=== PATIENT | male | born 1960 | race Hispanic/Latino ===

== ENCOUNTER 2016-11-29 08:01 | Inpatient (IN) | payer MEDICARE, OTHER ==
[2016-11-29] MEDS ORDERED: Sodium Chloride 0.9% 1,000 ML IV STA (08:18)
--- NOTE | 2016-11-29 08:24 | ED PDOC ---
HPI: General Adult Time Seen by Provider: 11/29/16 08:05 Chief Complaint (Nursing): GI Problem Chief Complaint (Provider): rectal bleeding History Per: Patient History/Exam Limitations: no limitations Onset/Duration Of Symptoms: Days (x 1) Have you had recent travel within the past 21 days to any of the following countries: [place], [place], [place] or [place]?: No Additional Complaint(s): Reji Bermudez is a 56 year old male, with a previous medical history of COPD, diabetes and depression, who presents to the ED for the evaluation of rectal bleeding which started last night. Patient states a moderate amount of dark red blood yesterday which he notes has decreased this morning. He denies any nausea , vomiting, fever or abdominal pain. PMD: Hussein Tsang MD Past Medical History Reviewed: Historical Data, Nursing Documentation, Vital Signs Vital Signs: Last Vital Signs Temp 97 F L 11/29/16 08:05 Pulse 100 H 11/29/16 08:05 Resp 18 11/29/16 08:05 BP 117/77 11/29/16 08:05 Pulse Ox 97 11/29/16 08:30 - Medical History PMH: Anxiety, Arthritis, Asthma, COPD, Depression, Diabetes, Gastrointestinal Ulcer, HTN, Hypercholesterolemia, Hyperlipidemia, Osteoporosis, Schizophrenia Denies: HIV, Chronic Kidney Disease - Surgical History Surgical History: Cholecystectomy - Family History Family History: States: Unknown Family Hx - Home Medications Home Medications: Ambulatory Orders Medication Instructions Recorded Alendronate [Fosamax] 70 mg PO QWK 11/29/16 Aspirin [Aspirin Chewable] 81 mg PO DAILY 11/29/16 Atorvastatin [Lipitor] 40 mg PO HS 11/29/16 Budesonide/Formoterol Fumarate 2 inh INH BID 11/29/16 [Symbicort 160-4.5 Mcg Inhaler] Calcium Carbonate/Vitamin D3 1 tab PO BID 11/29/16 [Oyster Shell Calcium Tablet] Clotrimazole 1% [Lotrimin AF 1%] 1 apful NA DAILY 11/29/16 Divalproex Sodium [Divalproex 2 tab PO HS 11/29/16 Sodium ER] Duloxetine HCl [Duloxetine] 60 mg PO DAILY 11/29/16 Econazole Nitrate [Ecoza] 1 apful TP BID 11/29/16 Gabapentin [Neurontin] 2 cap PO DAILY 11/29/16 Metformin HCl [Glucophage] 500 mg PO BID 11/29/16 Multivit-Min/FA/Lycopen/Lutein 1 cap PO DAILY 11/29/16 [Centrum Silver Tablet] Omeprazole 40 mg PO DAILY 11/29/16 Patient Own Control [Patient Own 1 appful TOP BID 11/29/16 Control] Tiotropium [Spiriva] 1 inh INH DAILY 11/29/16 Tolterodine [Detrol] 4 mg PO DAILY 11/29/16 - Allergies Allergies/Adverse Reactions: Allergies Allergy/AdvReac Type Severity Reaction Status Date / Time No Known Allergies Allergy Verified 08/25/15 08:44 Review of Systems ROS Statement: Except As Marked, All Systems Reviewed And Found Negative Constitutional: Negative for: Fever, Chills Gastrointestinal: Positive for: Other (rectal bleeding ). Negative for: Nausea , Vomiting, Abdominal Pain Physical Exam - Reviewed Nursing Documentation Reviewed: Yes Vital Signs Reviewed: Yes - Physical Exam Appears: Positive for: Well, Non-toxic, No Acute Distress Cardiovascular/Chest: Positive for: Regular Rate, Rhythm Respiratory: Positive for: CNT, Normal Breath Sounds Gastrointestinal/Abdominal: Positive for: Bowel Sounds, Soft, Other ( questionable ascities with fluid wave ). Negative for: Tenderness Rectal: Positive for: Other (bright red blood on glove ) Extremity: Positive for: Other (left foot fracture placed in surgical boot ) Neurologic/Psych: Positive for: Alert, Oriented - Laboratory Results Result Diagrams: 11/29/16 08:49 11/29/16 08:49 - ECG O2 Sat by Pulse Oximetry: 97 (RA) Pulse Ox Interpretation: Normal Medical Decision Making Medical Decision Making: Initial Impression: Rectal bleeding Initial Plan: * blood type and screen * CT abd & pelvis IV contrast * EKG * labs * urine dipstick * prothrombin time * IV NS 1,000 ml at 100 ml/hr * protonix * reevaluation Scribe Attestation: Documented by Mervat Chacon, acting as a scribe for Ozzy Mart MD. Provider Scribe Attestation: All medical record entries made by the Scribe were at my direction and personally dictated by me. I have reviewed the chart and agree that the record accurately reflects my personal performance of the history, physical exam, medical decision making, and the department course for this patient. I have also personally directed, reviewed, and agree with the discharge instructions and disposition. Disposition - Clinical Impression Clinical Impression: Diverticulosis, GI bleed - Patient ED Disposition Is Patient to be Admitted: Yes - Disposition Disposition Time: 12:00 Condition: FAIR - Pt Status Changed To: Hospital Disposition Of: Observation - POA Present On Arrival: None
[2016-11-29] MEDS ORDERED: Iohexol 300 100 ML IJ ONE (08:30)
[2016-11-29] MEDS ORDERED: Sodium Chloride 0.9% 50 ML IV ONE (08:31)
[2016-11-29 08:57] LABS: BASO % 0.2 % (0.0-2.0); EOS # 0.1 K/uL (0.0-0.7); EOS % 0.6 % (0.0-4.0); HEMATOCRIT 33.9 % (35.0-51.0); LYMPH # 2.9 K/uL (1.0-4.3); LYMPH % 28.6 % (20.0-40.0); MEAN CELL VOLUME 90.9 fl (80.0-94.0); MEAN CORPUSCULAR HEMOGLOBIN 30.5 pg (27.0-31.0); MEAN CORPUSCULAR HGB CONC 33.6 g/dL (33.0-37.0); MEAN PLATELET VOLUME 9.1 fl (7.2-11.7); MONO # 0.7 K/uL (0.0-0.8); MONO % 7.3 % (0.0-10.0); NEUT # 6.4 K/uL (1.8-7.0); NEUT % 63.3 % (50.0-75.0); WHITE BLOOD COUNT 10.2 K/uL (4.8-10.8)
[2016-11-29 09:07] LABS: ALB/GLOB RATIO 1.4 (1.0-2.1); ALKALINE PHOSPHATASE 64 U/L (38-126); ALT/SGPT 32 U/L (21-72); AST/SGOT 35 U/L (17-59); BILIRUBIN,TOTAL 0.4 mg/dl (0.2-1.3); BLOOD UREA NITROGEN 11 mg/dl (9-20); CALCIUM 8.9 mg/dL (8.4-10.2); CARBON DIOXIDE 25 mmol/L (22-30); CHLORIDE 99 mmol/L (98-107); GFR AFRICAN-AMERICAN > 60; GLUCOSE,RANDOM 135 mg/dL (75-110); POTASSIUM 4.1 MMOL/L (3.6-5.0); SODIUM 135 mmol/l (132-148); TOTAL PROTEIN 7.3 G/DL (6.3-8.2)
--- NOTE | 2016-11-29 11:07 | CT ---
PROCEDURE: CT Abdomen and pelvis dated 11/29/2016 HISTORY: gi bleed COMPARISON: Comparison made with prior CT scan abdomen pelvis 02/24/2016 TECHNIQUE: Contiguous axial images of the abdomen and pelvis. Oral contrast was administered. No IV contrast given. Coronal and Sagittal reformats generated. Radiation dose: Total exam DLP = 700.90 mGy-cm. This CT exam was performed using one or more of the following dose reduction techniques: Automated exposure control, adjustment of the mA and/or kV according to patient size, and/or use of iterative reconstruction technique. FINDINGS: LOWER THORAX: Fibrotic fibrosis/scarring and honeycombing changes both lung bases. There may also be chronic pleural thickening as well. Subpleural fat with what may represent the concomitant small amount of chronic pleural thickening as well. No effusion or basilar pneumothorax. Small hiatal hernia. Heart appears mildly enlarged. No pericardial effusion. LIVER: Liver appears mildly enlarged measuring just over 20 cm in CC dimension. The. Mild fatty hepatic infiltration. Portal and splenic veins are opacified. Re- demonstrated is a tiny approximately 3 mm low-attenuation focus left lateral margin left lobe liver too small characterize. GALLBLADDER AND BILE DUCTS: Re- demonstrated are changes of cholecystectomy with metallic clips in the gallbladder fossa PANCREAS: The visualized portions of the pancreas appear grossly unremarkable without mass collection or calcification. No significant pancreatic ductal dilatation. . SPLEEN: Spleen exhibits normal size and attenuation pattern without mass collection or calcification. ADRENALS: There are no adrenal lesions. . KIDNEYS AND URETERS: Kidneys demonstrate symmetric nephrograms. No evidence of nephrolithiasis or hydronephrosis. No obvious renal mass or collection. The BLADDER: The urinary bladder is physiologically distended. No evidence of intraluminal urinary bladder calculi. . REPRODUCTIVE: Prostate gland and seminal vesicles unremarkable APPENDIX: Normal-appearing appendix of best seen on coronal series 601 at image number [id number]. No periappendiceal inflammatory changes. BOWEL: Evaluation of the bowel is somewhat limited due to the lack of oral contrast material. The stomach is incompletely distended which may in part account for thick-walled appearance. Gastritis or other intrinsic/invasive wall lesion should be excluded. Consider followup EGD evaluation. Visualized loops of small bowel exhibit normal contour and caliber no do contain fluid. . No evidence of acute mechanical small bowel obstruction. There are scattered colonic diverticula the the the however no definitive radiographic evidence of acute diverticulitis. PERITONEUM: Unremarkable. No fluid collection. No free air. There appears to be localized mild dehiscence mid abdominus rectus muscle. LYMPH NODES: Unremarkable. No significantly enlarged ed lymph nodes. VASCULATURE: Unremarkable. No aortic aneurysm. . Partially calcified atherosclerotic plaque seen along the abdominal aorta and iliac vessels. BONES: Multilevel degenerative spondylosis of the lower thoracic and lumbar spine. OTHER FINDINGS: None. IMPRESSION: Gastric wall thickening which may in part be due to underdistention however gastritis or other intrinsic/invasive wall lesion to be excluded. Consider followup EGD evaluation Mild hepatomegaly with mild fatty hepatic infiltration. Tiny low-attenuation focus left lateral margin left lobe liver too small characterize on the. Followup interval could be performed to assess stability. The the Status post cholecystectomy. Diverticulosis without radiographic evidence of acute diverticulitis. Scarring/ fibrosis and honeycombing changes of both lung bases.
--- NOTE | 2016-11-29 12:21 | CARD ---
APPROVED REPORT EKG Measurement Heart [id number] ND [id number] [id number] <Conclusion> Sinus tachycardia with occasional premature ventricular complexes Otherwise normal ECG
[2016-11-29] MEDS ORDERED: ALENDRONATE 70 MG TAB PO SCH (18:15)
[2016-11-29] MEDS ORDERED: RISPERIDONE 4 MG PO SCH (22:00)
[2016-11-29] MEDS: Divalproex 500 mg ER (ONCE DAILY formulation) PO SCH (23:51)
[2016-11-29] MEDS: Sodium Chloride 0.9% 1,000 ML IV SCH (23:56)
--- NOTE | 2016-11-30 03:30 | PCM.RRTMUL ---
<Faheme Mar - Last Filed: 11/30/16 03:53> JAVA SYSTEMS ANALYST Nurse Assessment - Situation JAVA SYSTEMS ANALYST Responder Arrival Time:: 03:07 Location:: [address] [place] [address] - Vital Signs Blood Pressure:: 97/68 Pulse Rate:: 106 Respiratory Rate:: 18 Temperature:: 97.8 F Responder Note - Time JAVA SYSTEMS ANALYST was called Time JAVA SYSTEMS ANALYST was called:: 03:06 - Location Location: [address] [place] [address] - JAVA SYSTEMS ANALYST Team JAVA SYSTEMS ANALYST Leader:: Elvis Zeng Resident:: Faheem Mar - Vital Signs at Initial Assessment Blood Pressure:: 120/73 Pulse Rate:: 91 Respiratory Rate:: 14 Temperature:: 98 F O2 Sat by Pulse Oximetry:: 98 - Chest Pain Chest Pain:(If answer is yes, complete next 2 questions): No - Seizure Seizure:: No New Onset:: No - Neurological Status Neurological Status (Select all that apply):: Alert, Responsive, Oriented, Verbal, Follows Commands - Respiratory JAVA SYSTEMS ANALYST Delivery Method:: Nasal Cannula @L/min Summary - Summary of Event Summary of Event: JAVA SYSTEMS ANALYST was called at 3: 06 am for a 56 yo,m , PMhx/o COPD, diabetes, depression, who was admitted for rectal bleeding started 2 days ago. After patient having a BM bright red small amount rectal bleeding on the toilet this morning and going back to the bed, patient was noticed almost pass out by nurse. On responder arrival, patient lying down flat,pale, awake, AAO x3, responsive, follow commands, using O2 NC. He denies chest pain, SOB, N, V, Abd pain, fall. He reports feeling hungry. Initial VS: BP: 120/73 HR: 91 Temp: 98F Sat O2: 98% PE GA: Patient lying down flat, pale, awake, AAO x3, responsive, follow commands , using O2 NC CV: RRR, + S1, S2, No M/R/G. Resp: CTA, no rhonchi, wheezing, rales Abd: + Bs, Soft, no TD. no rebound, no guarding Neuro: AAO 3, no focal motor deficit Impression Near syncope secondary to anemia due to rectal bleeding labs reviewed H/H 11.4/33.9 on admission Plan -CBC, CMP -Type screen -Cross match 2. transfuse 1 unit -Transfuse consent taken. - to f/u <Elvis Zeng - Last Filed: 11/30/16 05:48> Outcomes - JAVA SYSTEMS ANALYST Outcomes JAVA SYSTEMS ANALYST Outcomes: I saw and examined the patient shoulder to shoulder with Dr Mar. The assessment and plan outlined represent my direct input. The patient had 3 episodes of hematochezia and was light headed on returning to bed. his Hb on chart at that time was 11.4g/dl with a Ht of 33.9. He was awake and alert , referred feeling better on lying down.. The blood pressure fell to 97/68mmHg and The IV Fluids NS at 100mls/Hr was Continued. A&P: # Lower GI bleed with Presyncopal episode;- Stat CBC/Type and cross for2 units of PRBC and transfuse one unit. New Hb is 9.4g/dl with Ht of 27.5. Consent for blood transfusion was obtained from the patient after the risk and benefits were explained to the patient. One unit of PRBC to be transfused immediately. Elvis Zeng MD Hospitalist Critical care time 35minutes
[2016-11-30 03:50] LABS: BASO # 0.1 K/uL (0.0-0.2); BASO % 0.4 % (0.0-2.0); EOS # 0.1 K/uL (0.0-0.7); EOS % 0.5 % (0.0-4.0); HEMATOCRIT 27.5 % (35.0-51.0); LYMPH # 5.8 K/uL (1.0-4.3); MEAN CELL VOLUME 90.5 fl (80.0-94.0); MEAN CORPUSCULAR HEMOGLOBIN 30.8 pg (27.0-31.0); MEAN PLATELET VOLUME 9.2 fl (7.2-11.7); MONO # 1.6 K/uL (0.0-0.8); MONO % 10.6 % (0.0-10.0); NEUT # 7.7 K/uL (1.8-7.0); NEUT % 50.5 % (50.0-75.0); NRBC % 0.1 % (0.0-0.0); RED CELL DISTRIBUTION WIDTH 13.9 % (11.5-14.5); WHITE BLOOD COUNT 15.2 K/uL (4.8-10.8)
[2016-11-30 04:29] LABS: ALB/GLOB RATIO 1.3 (1.0-2.1); ALKALINE PHOSPHATASE 63 U/L (38-126); ALT/SGPT 32 U/L (21-72); AST/SGOT 39 U/L (17-59); BILIRUBIN,TOTAL 0.4 mg/dl (0.2-1.3); BLOOD UREA NITROGEN 12 mg/dl (9-20); CALCIUM 8.5 mg/dL (8.4-10.2); CARBON DIOXIDE 21 mmol/L (22-30); CHLORIDE 103 mmol/L (98-107); GFR AFRICAN-AMERICAN > 60; GLUCOSE,RANDOM 115 mg/dL (75-110); POTASSIUM 4.3 MMOL/L (3.6-5.0); SODIUM 136 mmol/l (132-148); TOTAL PROTEIN 6.2 G/DL (6.3-8.2)
[2016-11-30] MEDS: Sodium Chloride 0.9% 1,000 ML IV SCH (04:30)
[2016-11-30] MEDS: Tiotropium 18 mcg Cap For Inhalation INH SCH (09:00)
[2016-11-30] MEDS ORDERED: Patient's Own Med (Omeprazole [Omeprazole] 40 MG) PO SCH (09:00)
[2016-11-30] MEDS ORDERED: Sodium Chloride 0.9% 1,000 ML IV SCH (13:13)
[2016-11-30 17:22] LABS: BASO # 0.1 K/uL (0.0-0.2); BASO % 0.5 % (0.0-2.0); EOS # 0.1 K/uL (0.0-0.7); EOS % 0.5 % (0.0-4.0); HEMATOCRIT 31.3 % (35.0-51.0); LYMPH # 3.6 K/uL (1.0-4.3); MEAN CELL VOLUME 90.5 fl (80.0-94.0); MEAN CORPUSCULAR HEMOGLOBIN 31.4 pg (27.0-31.0); MEAN CORPUSCULAR HGB CONC 34.7 g/dL (33.0-37.0); MEAN PLATELET VOLUME 8.9 fl (7.2-11.7); MONO # 1.3 K/uL (0.0-0.8); MONO % 10.8 % (0.0-10.0); NEUT # 7.1 K/uL (1.8-7.0); NEUT % 58.2 % (50.0-75.0); NRBC % 0.1 % (0.0-0.0); RED CELL DISTRIBUTION WIDTH 14.3 % (11.5-14.5); WHITE BLOOD COUNT 12.1 K/uL (4.8-10.8)
--- NOTE | 2016-11-30 18:06 | CP.PCM.HP ---
History of Present Illness - History of Present Illness History of Present Illness: A 56 yr old male with hx of COPD, DIzziness, smoker, hypokalemia, schzioaffective , diverticulosis came with sudden hx of rectal bleed started 2 days ago ,continuous, gush of blood, red ,painless, normal appetite. hx of similar episodes, multiple colonoscopies in past. early this am RT was called due to fall when he went to bathroom, hb dropped.getting blood transfusion now. feels little bit ok, c\o feeling hungry Present on Admission - Present on Admission Any Indicators Present on Admission: No Review of Systems - Constitutional Constitutional: Fatigue. absent: Chills, Fever, Weight Loss - EENT Nose/Mouth/Throat: absent: Epistaxis, Dysphagia, Sore Throat - Cardiovascular Cardiovascular: Lightheadedness, Palpitations. absent: Chest Pain, Dyspnea, Pedal Edema - Respiratory Respiratory: Cough. absent: Dyspnea, Chest Congestion, Excessive Mucous Production - Gastrointestinal Gastrointestinal: absent: Abdominal Pain, Constipation, Cramping, Melena, Nausea , Vomiting - Genitourinary Genitourinary: Nocturia. absent: Change in Urinary Stream - Musculoskeletal Musculoskeletal: Back Pain, Limited Range of Motion. absent: Arthralgias - Integumentary Integumentary: absent: Lesions, Sores - Neurological Neurological: Dizziness, Paresthesias - Psychiatric Psychiatric: Depression. absent: Behavioral Changes - Hematologic/Lymphatic Hematologic: absent: Easy Bleeding Past Patient History - Infectious Disease Hx of Infectious Diseases: None - Past Medical History & Family History Past Medical History?: Yes - Past Social History Smoking Status: Heavy Smoker > 10 Cigarettes Daily - CARDIAC Hx Cardiac Disorders: Yes (hypertension, high cholesterol) - PULMONARY Hx Respiratory Disorders: Yes (asthma, copd) - NEUROLOGICAL Hx Neurological Disorder: No - HEENT Hx HEENT Problems: No - RENAL Hx Chronic Kidney Disease: No - ENDOCRINE/METABOLIC Hx Endocrine Disorders: Yes (DM) - HEMATOLOGICAL/ONCOLOGICAL Hx Human Immunodeficiency Virus (HIV): No - INTEGUMENTARY Hx Dermatological Problems: No - MUSCULOSKELETAL/RHEUMATOLOGICAL Hx Musculoskeletal Disorders: Yes (arthritis) Hx Falls: No - GASTROINTESTINAL Hx Gastrointestinal Disorders: Yes Hx Ulcer: Yes - GENITOURINARY/GYNECOLOGICAL Hx Genitourinary Disorders: No - PSYCHIATRIC Hx Psychophysiologic Disorder: Yes (anxiety, depression, schizophrenia) Hx Substance Use: Yes (cocaine, marijuana 20 yrs ago) - SURGICAL HISTORY Hx Cholecystectomy: Yes - ANESTHESIA Hx Anesthesia: Yes Hx Anesthesia Reactions: No Hx Malignant Hyperthermia: No Meds Allergies/Adverse Reactions: Allergies Allergy/AdvReac Type Severity Reaction Status Date / Time No Known Allergies Allergy Verified 08/25/15 08:44 Physical Exam - Constitutional Appears: No Acute Distress, Older Than Stated Age - Head Exam Head Exam: ATRAUMATIC, NORMAL INSPECTION - Eye Exam Eye Exam: EOMI, PERRL - ENT Exam ENT Exam: Mucous Membranes Dry - Neck Exam Neck exam: Positive for: Normal Inspection. Negative for: Lymphadenopathy, Tenderness - Respiratory Exam Respiratory Exam: Decreased Breath Sounds, Clear to Auscultation Bilateral, NORMAL BREATHING PATTERN. absent: Wheezes - Cardiovascular Exam Cardiovascular Exam: REGULAR RHYTHM, +S1, +S2. absent: RRR - GI/Abdominal Exam GI & Abdominal Exam: Normal Bowel Sounds, Soft - Extremities Exam Extremities exam: Positive for: pedal pulses present. Negative for: pedal edema - Neurological Exam Neurological exam: Alert, Normal Gait, Oriented x3 - Psychiatric Exam Psychiatric exam: Normal Affect - Skin Skin Exam: Intact Results - Vital Signs Recent Vital Signs: Last Vital Signs Temp 97.9 F 11/30/16 17:08 Pulse 94 H 11/30/16 17:08 Resp 18 11/30/16 17:08 BP 99/67 L 11/30/16 17:08 Pulse Ox 97 11/30/16 17:08 - Labs Result Diagrams: 12/02/16 06:00 12/02/16 06:00 Labs: Laboratory Results - last 24 hr 11/29/16 11/30/16 11/30/16 13:10 03:20 03:20 WBC 15.2 H RBC 3.04 L Hgb 9.4 L D Hct 27.5 L MCV 90.5 MCH 30.8 MCHC 34.0 RDW 13.9 Plt Count 250 MPV 9.2 Neut % (Auto) 50.5 Lymph % (Auto) 38.0 Smith % (Auto) 10.6 H Eos % (Auto) 0.5 Baso % (Auto) 0.4 Neut # 7.7 H Lymph # 5.8 H Smith # 1.6 H Eos # 0.1 Baso # 0.1 Sodium 136 Potassium 4.3 Chloride 103 Carbon Dioxide 21 L Anion Gap 16 BUN 12 Creatinine 0.9 Est GFR ( Amer) > 60 Est GFR (Non-Af Amer) > 60 POC Glucose (mg/dL) 110 Random Glucose 115 H Calcium 8.5 Total Bilirubin 0.4 AST 39 ALT 32 Alkaline Phosphatase 63 Total Protein 6.2 L Albumin 3.5 Globulin 2.7 Albumin/Globulin Ratio 1.3 Blood Type Antibody Screen Crossmatch BBK History Checked 11/30/16 11/30/16 03:20 17:11 WBC 12.1 H RBC 3.46 L Hgb 10.9 L Hct 31.3 L MCV 90.5 MCH 31.4 H MCHC 34.7 RDW 14.3 Plt Count 231 MPV 8.9 Neut % (Auto) 58.2 Lymph % (Auto) 30.0 Smith % (Auto) 10.8 H Eos % (Auto) 0.5 Baso % (Auto) 0.5 Neut # 7.1 H Lymph # 3.6 Smith # 1.3 H Eos # 0.1 Baso # 0.1 Sodium Potassium Chloride Carbon Dioxide Anion Gap BUN Creatinine Est GFR ( Amer) Est GFR (Non-Af Amer) POC Glucose (mg/dL) Random Glucose Calcium Total Bilirubin AST ALT Alkaline Phosphatase Total Protein Albumin Globulin Albumin/Globulin Ratio Blood Type O POSITIVE Antibody Screen Negative Crossmatch See Detail BBK History Checked Patient has bt - EKG Data EKG Interpreted by: Other - Imaging and Cardiology CT scan - abdomen Status: Report reviewed by me Assessment & Plan (1) Lower GI bleed Status: Acute (2) Syncope Status: Acute (3) Anemia Status: Acute (4) COPD (chronic obstructive pulmonary disease) Status: Chronic Priority: High (5) Tobacco use Status: Chronic Priority: High - Assessment and Plan (Free Text) Plan: 1. cbc q12 likley due to diverticular bleeding GI consult IVF prilosec bid NPO 2. syncope likley due to vasovagal ivf blood transfusion 3. anemia - due to acute blood loss 4.resume meds
[2016-11-30] MEDS: Divalproex 500 mg ER (ONCE DAILY formulation) PO SCH (21:29)
[2016-12-01 08:19] LABS: BASO % 0.4 % (0.0-2.0); EOS # 0.2 K/uL (0.0-0.7); EOS % 1.6 % (0.0-4.0); HEMATOCRIT 29.1 % (35.0-51.0); LYMPH # 2.9 K/uL (1.0-4.3); LYMPH % 28.2 % (20.0-40.0); MEAN CELL VOLUME 91.9 fl (80.0-94.0); MEAN CORPUSCULAR HEMOGLOBIN 31.2 pg (27.0-31.0); MEAN CORPUSCULAR HGB CONC 33.9 g/dL (33.0-37.0); MONO # 1.1 K/uL (0.0-0.8); MONO % 10.6 % (0.0-10.0); NEUT % 59.2 % (50.0-75.0); RED CELL DISTRIBUTION WIDTH 13.9 % (11.5-14.5); WHITE BLOOD COUNT 10.1 K/uL (4.8-10.8)
[2016-12-01 08:21] LABS: ALB/GLOB RATIO 1.2 (1.0-2.1); ALKALINE PHOSPHATASE 59 U/L (38-126); ALT/SGPT 33 U/L (21-72); AST/SGOT 28 U/L (17-59); BILIRUBIN,TOTAL 0.7 mg/dl (0.2-1.3); BLOOD UREA NITROGEN 12 mg/dl (9-20); CALCIUM 8.4 mg/dL (8.4-10.2); CARBON DIOXIDE 25 mmol/L (22-30); CHLORIDE 103 mmol/L (98-107); GFR AFRICAN-AMERICAN > 60; GLUCOSE,RANDOM 93 mg/dL (75-110); POTASSIUM 4.1 MMOL/L (3.6-5.0); SODIUM 136 mmol/l (132-148)
[2016-12-01] MEDS: Tiotropium 18 mcg Cap For Inhalation INH SCH (09:19)
[2016-12-01] MEDS: Fluticasone-Salmeterol 250-50mcg Diskus INH SCH ×2 (13:37→17:41)
[2016-12-01] MEDS ORDERED: Peg-Electrolyte Oral Soln 4L (Golytely) PO ONE (16:00)
[2016-12-01] MEDS: Divalproex 500 mg ER (ONCE DAILY formulation) PO SCH (21:19)
--- NOTE | 2016-12-01 22:29 | CP.PCM.PN ---
Subjective - Date & Time of Evaluation Date of Evaluation: 12/01/16 Time of Evaluation: 08:00 - Subjective Subjective: still has bloody BM. hb-9.9 from 10, feeling ok,denies dizziness. tolerating liquids, GI on board Objective - Vital Signs/Intake and Output Vital Signs (last 24 hours): Temp Pulse Resp BP Pulse Ox 97.5 F L 73 20 110/65 94 L 12/01/16 17:00 12/01/16 17:00 12/01/16 17:00 12/01/16 17:00 12/01/16 17:00 - Medications Medications: Current Medications Alendronate Sodium (Fosamax) 70 mg PO QWK [facility] Atorvastatin Calcium (Lipitor) 40 mg PO HS [facility] Last Admin: 12/01/16 21:20 Dose: 40 mg Clotrimazole (Lotrimin Af 1%) 1 applic EXT DAILY [facility] Last Admin: 12/01/16 09:20 Dose: 1 applic Divalproex Sodium (Depakote Er(Once Daily)) 1,000 mg PO HS [facility] Last Admin: 12/01/16 21:19 Dose: 1,000 mg Duloxetine HCl (Cymbalta) 60 mg PO DAILY [facility] Last Admin: 12/01/16 09:18 Dose: 60 mg Pantoprazole Sodium (Protonix Inj) 40 mg IVP Q12 [facility] Last Admin: 12/01/16 21:22 Dose: 40 mg Risperidone (Risperdal Tab) 4 mg PO HS [facility] Last Admin: 12/01/16 21:19 Dose: 4 mg Fluticasone/Salmeterol (Advair Diskus 250/50) 1 puff INH BID [facility] Last Admin: 12/01/16 17:41 Dose: 1 puff Tiotropium [place] (Spiriva) 18 mcg INH DAILY [facility] Last Admin: 12/01/16 09:19 Dose: 18 mcg Tolterodine Tartrate (Detrol) 4 mg PO DAILY [facility] Last Admin: 12/01/16 09:18 Dose: 4 mg - Labs Labs: PT 13.4 SECONDS (9.6-11.2) H 11/29/16 08:49 INR 1.29 (0.92-1.08) H 11/29/16 08:49 - Additional Findings Additional findings: - Constitutional Appears: No Acute Distress, Older Than Stated Age - Head Exam Head Exam: ATRAUMATIC, NORMAL INSPECTION - Eye Exam Eye Exam: EOMI, PERRL - ENT Exam ENT Exam: Mucous Membranes Dry - Neck Exam Neck exam: Positive for: Normal Inspection. Negative for: Lymphadenopathy, Tenderness - Respiratory Exam Respiratory Exam: Decreased Breath Sounds, Clear to Auscultation Bilateral, NORMAL BREATHING PATTERN. absent: Wheezes - Cardiovascular Exam Cardiovascular Exam: REGULAR RHYTHM, +S1, +S2. absent: RRR - GI/Abdominal Exam GI & Abdominal Exam: Normal Bowel Sounds, Soft - Extremities Exam Extremities exam: Positive for: pedal pulses present. Negative for: pedal edema - Neurological Exam Neurological exam: Alert, Normal Gait, Oriented x3 - Psychiatric Exam Psychiatric exam: Normal Affect - Skin Skin Exam: Intact Assessment and Plan (1) GI bleed Status: Acute (2) Anemia Status: Acute (3) Syncope Status: Resolved (4) COPD (chronic obstructive pulmonary disease) Status: Chronic (5) Schizoaffective disorder Status: Chronic - Assessment and Plan (Free Text) Plan: 1.monitor CBC daily 2. continue PPI 3. IVF 4. if continue bleed ,needs embolisation.
[2016-12-02 06:19] LABS: HEMATOCRIT 28.7 % (35.0-51.0); MEAN CELL VOLUME 92.2 fl (80.0-94.0); MEAN CORPUSCULAR HEMOGLOBIN 30.4 pg (27.0-31.0); RED CELL DISTRIBUTION WIDTH 14.1 % (11.5-14.5); WHITE BLOOD COUNT 11.1 K/uL (4.8-10.8)
[2016-12-02 06:39] LABS: ALKALINE PHOSPHATASE 62 U/L (38-126); ALT/SGPT 33 U/L (21-72); AST/SGOT 27 U/L (17-59); BILIRUBIN,TOTAL 0.4 mg/dl (0.2-1.3); BLOOD UREA NITROGEN 7 mg/dl (9-20); CALCIUM 8.2 mg/dL (8.4-10.2); CARBON DIOXIDE 26 mmol/L (22-30); CHLORIDE 105 mmol/L (98-107); GFR AFRICAN-AMERICAN > 60; GLUCOSE,RANDOM 91 mg/dL (75-110); POTASSIUM 3.8 MMOL/L (3.6-5.0); SODIUM 139 mmol/l (132-148); TOTAL PROTEIN 6.1 G/DL (6.3-8.2)
[2016-12-02 06:40] LABS: ALB/GLOB RATIO 1.3 (1.0-2.1)
[2016-12-02] MEDS: Fluticasone-Salmeterol 250-50mcg Diskus INH SCH ×2 (08:28→17:11)
[2016-12-02] MEDS: Tiotropium 18 mcg Cap For Inhalation INH SCH (08:28)
[2016-12-02] MEDS ORDERED: Lactated Ringer's 500 ML IV ONE (11:28)
[2016-12-02] MEDS ORDERED: Propofol 10 mg/ml Inj (20 ML) ONE (12:13)
[2016-12-02 12:50] VITALS: RESP 20
[2016-12-02] MEDS: Divalproex 500 mg ER (ONCE DAILY formulation) PO SCH (21:03)
--- NOTE | 2016-12-02 22:15 | CP.PCM.PN ---
Subjective - Date & Time of Evaluation Date of Evaluation: 12/02/16 - Subjective Subjective: hb-9.4,wbc-11.1 Objective - Vital Signs/Intake and Output Vital Signs (last 24 hours): Temp Pulse Resp BP Pulse Ox 98.1 F 84 20 109/70 94 L 12/02/16 17:00 12/02/16 17:00 12/02/16 17:00 12/02/16 17:00 12/02/16 17:00 Intake and Output: 12/02/16 12/03/16 18:59 06:59 Intake Total 110 Balance 110 - Medications Medications: Current Medications Alendronate Sodium (Fosamax) 70 mg PO QWK [facility] Atorvastatin Calcium (Lipitor) 40 mg PO HS [facility] Last Admin: 12/02/16 21:03 Dose: 40 mg Clotrimazole (Lotrimin Af 1%) 1 applic EXT DAILY [facility] Last Admin: 12/02/16 08:28 Dose: 1 applic Divalproex Sodium (Depakote Er(Once Daily)) 1,[address] [facility] Last Admin: 12/02/16 21:03 Dose: 1,000 mg Duloxetine HCl (Cymbalta) 60 mg PO DAILY [facility] Last Admin: 12/02/16 08:35 Dose: Not Given Pantoprazole Sodium (Protonix Inj) 40 mg IVP Q12 [facility] Last Admin: 12/02/16 21:05 Dose: 40 mg Risperidone (Risperdal Tab) 4 mg PO HS [facility] Last Admin: 12/02/16 21:03 Dose: 4 mg Fluticasone/Salmeterol (Advair Diskus 250/50) 1 puff INH BID [facility] Last Admin: 12/02/16 17:11 Dose: 1 puff Tiotropium [place] (Spiriva) 18 mcg INH DAILY [facility] Last Admin: 12/02/16 08:28 Dose: 18 mcg Tolterodine Tartrate (Detrol) 4 mg PO DAILY [facility] Last Admin: 12/02/16 08:35 Dose: Not Given - Labs Labs: 12/02/16 06:00 12/02/16 06:00 PT 13.4 SECONDS (9.6-11.2) H 11/29/16 08:49 INR 1.29 (0.92-1.08) H 11/29/16 08:49 - Additional Findings Additional findings: - Constitutional Appears: No Acute Distress, Older Than Stated Age - Head Exam Head Exam: ATRAUMATIC, NORMAL INSPECTION - Eye Exam Eye Exam: EOMI, PERRL - ENT Exam ENT Exam: Mucous Membranes Dry - Neck Exam Neck exam: Positive for: Normal Inspection. Negative for: Lymphadenopathy, Tenderness - Respiratory Exam Respiratory Exam: Decreased Breath Sounds, Clear to Auscultation Bilateral, NORMAL BREATHING PATTERN. absent: Wheezes - Cardiovascular Exam Cardiovascular Exam: REGULAR RHYTHM, +S1, +S2. absent: RRR - GI/Abdominal Exam GI & Abdominal Exam: Normal Bowel Sounds, Soft - Extremities Exam Extremities exam: Positive for: pedal pulses present. Negative for: pedal edema - Neurological Exam Neurological exam: Alert, Normal Gait, Oriented x3 - Psychiatric Exam Psychiatric exam: Normal Affect - Skin Skin Exam: Intact Assessment and Plan (1) GI bleed Status: Acute (2) Anemia Status: Acute (3) Syncope Status: Resolved (4) COPD (chronic obstructive pulmonary disease) Status: Chronic (5) Schizoaffective disorder Status: Chronic
[2016-12-03 00:33] VITALS: O2SAT 96
[2016-12-03 07:10] LABS: ALB/GLOB RATIO 1.3 (1.0-2.1); ALKALINE PHOSPHATASE 57 U/L (38-126); ALT/SGPT 38 U/L (21-72); AST/SGOT 39 U/L (17-59); BILIRUBIN,TOTAL 0.4 mg/dl (0.2-1.3); BLOOD UREA NITROGEN 7 mg/dl (9-20); CALCIUM 8.6 mg/dL (8.4-10.2); CARBON DIOXIDE 25 mmol/L (22-30); CHLORIDE 104 mmol/L (98-107); GFR AFRICAN-AMERICAN > 60; GLUCOSE,RANDOM 98 mg/dL (75-110); POTASSIUM 3.7 MMOL/L (3.6-5.0); SODIUM 140 mmol/l (132-148); TOTAL PROTEIN 6.4 G/DL (6.3-8.2)
[2016-12-03 08:18] VITALS: BP 112/78; PULSE 74; TEMP 99.3
--- NOTE | 2016-12-03 08:36 | CON ---
DATE: 11/29/2016 REFERRING PHYSICIAN: Dr. Tsang REASON FOR CONSULTATION: ____. This is a 56-year-old male with a history of ____ dizziness. Essentially comes in for rectal bleedin g the past couple days, had a colonoscopy performed about a week for polypectomy. Now has intermitte nt rectal bleeding ____ discomfort. The patient is feeling better, lying in bed, comfortable, in no apparent distress. PAST MEDICAL HISTORY: As above. PAST SURGICAL HISTORY: As above. MEDICATIONS: Have been reviewed. All other systems have been reviewed and negative apart from the HPI. PHYSICAL EXAMINATION: VITAL SIGNS: Here in the hospital, grossly unremarkable. GENERAL: A pleasant male, lying in bed, comfortable, in no apparent distress. HEAD: Normocephalic, atraumatic. EYES: Pupils equal, reactive to light bilaterally. No conjunctival pallor or icterus. NECK: Supple, normal range of motion. No lymphadenopathy appreciated. LUNGS: Coarse breath sounds present bilaterally. HEART: S1, S2. Regular rate and rhythm. No murmurs appreciated. ABDOMEN: Soft ____. Bowel sounds present. No rebound, no guarding. RECTAL: Deferred. EXTREMITIES: Pulses present bilaterally. SKIN: Warm, dry and intact. NEUROLOGIC: Alert and oriented x 2. LABORATORIES: Reviewed. WBCs 10.2, hemoglobin 11.4, hematocrit 33.4. INR 1.3. A CAT scan is pending. ASSESSMENT AND PLAN: This is a 56-year-old male ____ rectal bleeding, possibly colitis ____ post alycia ypectomy bleeding. Plan for CAT scan results and/or colonoscopy. Thank you for the consult. Jose Manuel Saenz MD, PhD cc:Hussein Tsang MD [id number] TT: 12/02/2016 13:44:16 Confirmation # [id number] Dictation # [id number]
[2016-12-03 09:16] LABS: BASO # 0.1 K/uL (0.0-0.2); BASO % 0.7 % (0.0-2.0); EOS # 0.2 K/uL (0.0-0.7); EOS % 1.7 % (0.0-4.0); HEMATOCRIT 27.3 % (35.0-51.0); LYMPH # 3.4 K/uL (1.0-4.3); MEAN CELL VOLUME 91.5 fl (80.0-94.0); MEAN CORPUSCULAR HEMOGLOBIN 31.3 pg (27.0-31.0); MEAN CORPUSCULAR HGB CONC 34.2 g/dL (33.0-37.0); MONO % 10.6 % (0.0-10.0); NEUT # 4.9 K/uL (1.8-7.0); NRBC % 0.1 % (0.0-0.0); RED CELL DISTRIBUTION WIDTH 14.1 % (11.5-14.5); WHITE BLOOD COUNT 9.6 K/uL (4.8-10.8)
[2016-12-03] MEDS: Fluticasone-Salmeterol 250-50mcg Diskus INH SCH ×2 (10:21→10:29)
[2016-12-03] MEDS: Tiotropium 18 mcg Cap For Inhalation INH SCH (10:24)
== END 2016-12-03 12:10 | disposition home or self-care (01) | DRG 378 ==
LOC: H.ER 08:01 → H.ERHOLD 11:57 → H.MEDSURG1 14:16 → OBSVTOIN 12-01 12:46
PROVIDERS: ADMIT Internal Medicine; ATTEND Internal Medicine
PROC: 30233N1 Transfusion of Nonautologous Red Blood Cells into Peripheral Vein, Percutaneous Approach (ICD-10-PCS; 2016-11-30)
PROC: 0DJD8ZZ Inspection of Lower Intestinal Tract, Via Natural or Artificial Opening Endoscopic (ICD-10-PCS; principal; 2016-12-02 13:15)
DX: K92.2 Gastrointestinal hemorrhage, unspecified (principal); D62 Acute posthemorrhagic anemia; F25.9 Schizoaffective disorder, unspecified; I10 Essential (primary) hypertension; J44.9 Chronic obstructive pulmonary disease, unspecified; K57.90 Diverticulosis of intestine, part unspecified, without perforation or abscess without bleeding; Z72.0 Tobacco use; R55 Syncope and collapse; E11.9 Type 2 diabetes mellitus without complications; E78.00 Pure hypercholesterolemia, unspecified; E78.5 Hyperlipidemia, unspecified; M81.0 Age-related osteoporosis without current pathological fracture; Z87.11 Personal history of peptic ulcer disease; K64.4 Residual hemorrhoidal skin tags; K64.8 Other hemorrhoids